=== PATIENT | male | born 1985 | race African-American/Black ===

== ENCOUNTER 2022-08-29 12:35 | Emergency (ER) | payer SELFPAY | END 2022-08-29 13:31 | disposition home or self-care (01) | LOC: NAV ERS 12:35 | DX: H60.92 Unspecified otitis externa, left ear (principal); H61.22 Impacted cerumen, left ear; F17.210 Nicotine dependence, cigarettes, uncomplicated | CPT/HCPCS: 69209 ==

== ENCOUNTER 2022-11-29 11:26 | Emergency (ER) | payer SELFPAY ==
[~2022-11-29 11:26] MED LIST: Iopamidol 370 76% 100 ML VIAL ONE
[2022-11-29] MEDS ORDERED: Morphine 4 MG/ML VIAL ONE (13:01)
[2022-11-29] MEDS ORDERED: Ondansetron PF 4 MG/2 ML Vial ONE (13:01)
[2022-11-29] MEDS ORDERED: Sodium Chloride 0.9% 1,000 ML ONE (13:01)
[2022-11-29 13:30] LABS: Bilirubin Negative (Negative); Blood, Urine Trace (Negative); Clarity Clear (Clear); Glucose, Urine (Dipstick) Negative (Negative); Ketone, Urine Negative (Negative); Leukocyte Negative (Negative); Nitrite Negative (Negative); Protein, Urine (Dipstick) Negative (Neg-Trace); Specific Gravity, Urine 1.025 (1.005-1.030); Urobilinogen 0.2 mg/dL (Less than 2)
[2022-11-29 13:33] LABS: Hemoglobin 13.5 g/dL (14.0-18.0); MDiff Complete? YES; Manual Diff?? YES; Mean Corpuscular HGB CONC 31.4 g/dL (32.0-36.0); Mean Corpuscular Volume 98.7 fl (78.0-98.0); Mean Platelet Volume 6.3 fL (7.4-10.4); Platelet Count 202 10x3/uL (130-400); RBC Distribution Width 13.2 % (11.5-14.5); Red Blood Cell (RBC) Count 4.35 mill/uL (4.70-6.10); White Blood Cell (WBC) Count 6.5 10x3/uL (4.8-10.8)
[2022-11-29 13:39] LABS: ALT (SGPT) 27 U/L (8-55); AST (SGOT) 23 U/L (5-34); Albumin 4.4 g/dL (3.5-5.0); Alkaline Phosphatase 71 U/L (40-110); Anion Gap 13 mmol/L (10-20); BUN (Urea Nitrogen) 11 mg/dL (8.9-20.6); Bilirubin, Total 0.5 mg/dL (0.2-1.2); Calc. Creatinine Clearance 0 mL/min (70-130); Calcium 9.4 mg/dL (7.8-10.44); Carbon Dioxide 26 mmol/L (22-29); Chloride 106 mmol/L (98-107); Estimated GFR 105; Globulin 3.3 g/dL (2.4-3.5); Glucose 84 mg/dL (70-105); Potassium 4.2 mmol/L (3.5-5.1); Protein, Total 7.7 g/dL (6.0-8.3); Sodium 141 mmol/L (136-145)
[2022-11-29 13:40] LABS: Bacteria/HPF None Seen HPF (None Seen); RBC/HPF 0-3 HPF (0-3); Squamous Epithelial None Seen HPF (0-3); WBC/HPF None Seen HPF (0-3)
[2022-11-29 13:44] LABS: Eosinophils 3 % (0-10); Lymphocytes 40 % (21-51); Monocytes 3 % (0-10); Neutrophil 52 % (42-75); Reactive Lymphocytes 2 % (0-10)
[2022-11-29 13:45] LABS: Platelet Morphology Comment Appears Adequate; Stomatocytes SLIGHT = 2-5 cells (100X) (0-1/hpf)
[2022-11-29 13:46] LABS: Target Cells SLIGHT = 2-5 cells (100X) (0-1/hpf)
[2022-11-29] MEDS ORDERED: Fentanyl 100 MCG/2 ML VIAL ONE ×2 (14:14→15:42)
[2022-11-29] MEDS ORDERED: Metoclopramide HCl 10 MG/2 ML VIAL ONE (15:42)
[2022-11-29] MEDS ORDERED: Sodium Chloride 0.9% 100 ML ONE (15:42)
[2022-11-29] MEDS ORDERED: Cipro 250 MG TAB ONE ×2 (16:56→16:58)
== END 2022-11-29 17:16 | disposition home or self-care (01) ==
LOC: NAV ERS 11:26
DX: N41.0 Acute prostatitis (principal); F17.210 Nicotine dependence, cigarettes, uncomplicated
CPT/HCPCS: 36415; 74177; 80053; 81003; 81015; 83690; 85025; 93005; 96365; 96375; 96376; J2270; J2405; J2765; J3010; J7050; Q9967

== ENCOUNTER 2024-06-26 14:58 | Emergency (ER) | payer OTHER, SELFPAY ==
[2024-06-26] MEDS ORDERED: Boostrix 0.5 ML (Tdap) VIAL (>/=7 yrs of age) ONE (15:28)
[2024-06-26] MEDS ORDERED: Bacitracin 1 PK ONE (15:34)
== END 2024-06-26 15:42 | disposition home or self-care (01) ==
LOC: NAV ERS 14:58
DX: S61.012A Laceration without foreign body of left thumb without damage to nail, initial encounter (principal); F17.290 Nicotine dependence, other tobacco product, uncomplicated; W26.8XXA Contact with other sharp object(s), not elsewhere classified, initial encounter; Z23 Encounter for immunization
CPT/HCPCS: 90471; 90715

== ENCOUNTER 2024-08-20 17:42 | Emergency (ER) | payer OTHER ==
[2024-08-20] MEDS ORDERED: Aspirin Chewable 81 MG TAB ONE (17:52)
[2024-08-20 18:41] LABS: #Basophils 0.1 thou/uL (0.0-0.2); #Eosinophils 0.1 thou/uL (0.0-0.7); #Lymphocytes 1.4 thou/uL (1.20-3.40); #Monocytes 0.6 thou/uL (0.11-0.59); #Neutrophils 6.9 thou/uL (1.40-6.50); %Eosinophils 0.7 % (0.0-10.0); %Lymphocytes 15.6 % (21.0-51.0); %Monocytes 6.6 % (0.0-10.0); %Neutrophils 76.1 % (42.0-75.0); Hematocrit 42.8 % (42.0-52.0); Hemoglobin 13.6 g/dL (14.0-18.0); Mean Corpuscular HGB CONC 31.8 g/dL (32.0-36.0); Mean Corpuscular Hemoglobin 30.2 pg (27.0-31.0); Mean Corpuscular Volume 95.1 fl (78.0-98.0); Platelet Count 185 10x3/uL (130-400); RBC Distribution Width 11.9 % (11.5-14.5); Red Blood Cell (RBC) Count 4.51 mill/uL (4.70-6.10); White Blood Cell (WBC) Count 9.1 10x3/uL (4.8-10.8)
[2024-08-20 18:50] LABS: ALT (SGPT) 16 U/L (8-55); AST (SGOT) 15 U/L (5-34); Albumin 4.1 g/dL (3.5-5.0); Alkaline Phosphatase 64 U/L (40-110); Anion Gap 15 mmol/L (10-20); BUN (Urea Nitrogen) 12 mg/dL (8.9-20.6); Calc. Creatinine Clearance 0 mL/min (70-130); Calcium 9.5 mg/dL (7.8-10.44); Carbon Dioxide 23 mmol/L (22-29); Chloride 105 mmol/L (98-107); Estimated GFR 61; Globulin 3.2 g/dL (2.4-3.5); Glucose 125 mg/dL (70-105); Protein, Total 7.3 g/dL (6.0-8.3); Sodium 139 mmol/L (136-145)
[2024-08-20 18:56] LABS: Troponin I Less than 0.010 ng/mL (< 0.028)
[2024-08-20] MEDS ORDERED: Ketorolac Tromethamine 30 MG (1 mL) VIAL ONE (19:35)
== END 2024-08-20 20:48 | disposition home or self-care (01) ==
LOC: NAV ERS 17:42
DX: J93.9 Pneumothorax, unspecified (principal); F17.290 Nicotine dependence, other tobacco product, uncomplicated
CPT/HCPCS: 71046; 80053; 83880; 84484; 85025; 85379; 93005; 96374; J1885

== ENCOUNTER 2024-10-23 07:40 | Emergency (ER) | payer BC, OTHER ==
[2024-10-23] MEDS ORDERED: Acetaminophen 325 MG TAB ONE (08:39)
== END 2024-10-23 08:53 | disposition home or self-care (01) ==
LOC: NAV ERS 07:40
DX: M54.41 Lumbago with sciatica, right side (principal); F17.290 Nicotine dependence, other tobacco product, uncomplicated; X50.1XXA Overexertion from prolonged static or awkward postures, initial encounter; Y93.89 Activity, other specified
CPT/HCPCS: 99283

== ENCOUNTER 2025-06-28 16:01 | Emergency (ER) | payer OTHER, SELFPAY | END 2025-06-28 17:08 | disposition home or self-care (01) | LOC: NAV ERS 16:01 | DX: H60.11 Cellulitis of right external ear (principal); H61.22 Impacted cerumen, left ear; F17.290 Nicotine dependence, other tobacco product, uncomplicated | CPT/HCPCS: 99282 ==